=== PATIENT | male | born 1965 | race Caucasian/White ===

== ENCOUNTER 2016-09-08 15:05 | Inpatient (IN) ==
[2016-09-08 15:58] LABS: Basophils % 0.1 %; Hematocrit 39.8 % (37.5-50.1); Hemoglobin 13.4 g/dL (12.9-16.9); Immature Granulocytes % 0.6 % (0-4); Lymphocytes # 0.7 K/mcL (0.6-4.6); Mean Corpuscular HGB Conc 33.7 g/dL (31.6-35.5); Mean Corpuscular Hemoglobin 30.7 pg (28.0-33.3); Mean Corpuscular Volume 91.1 fL (83.0-100.0); Mean Platelet Volume 10.5 fL (9.4-12.4); Monocytes # 1.4 K/mcL (0.0-1.3); Monocytes % 8.3 %; Neutrophils # 14.4 K/mcL (1.6-8.9); Platelet Count 279 K/mcL (140-400); Red Blood Count 4.37 M/mcL (4.19-5.50); Red Cell Distribution Width 13.2 % (11.5-14.5)
[2016-09-08 16:10] LABS: BUN/Creatinine Ratio 33 (6-26); Calcium 9.5 mg/dL (8.6-10.8); Carbon Dioxide 24 mEq/L (19-29); Chloride 99 mEq/L (98-109); Glucose 175 mg/dL (70-99); Osmolality,Calculated 283 (280-300); Potassium 4.3 mEq/L (3.5-4.5); Sodium 132 mEq/L (136-145); eGFR For African Americans > 60 (> 60); eGFR For Non-African Americans > 60 (> 60)
[2016-09-08 16:15] LABS: Blood Urea Nitrogen 26 mg/dL (8-26)
[2016-09-08 22:01] LABS: ABG HCO3 25.2 mEQ/L (21-27); ABG Oxygen Saturation 95 % (95-98); ABG PCO2 38 mmHg (35-45); ABG PH 7.43 pH Units (7.32-7.45); ABG PO2 71 mmHg (85-104); ABG TCO2 26.4 mEq/L (20-26); Blood Gas FiO2 36 %
[2016-09-09 06:36] LABS: Basophils % 0.1 %; Eosinophils % 0.1 %; Red Cell Distribution Width 13.2 % (11.5-14.5)
[2016-09-09 06:46] LABS: Hematocrit 40.9 % (37.5-50.1); Hemoglobin 13.6 g/dL (12.9-16.9); Immature Granulocytes % 0.7 % (0-4); Lymphocytes % 7.7 %; Mean Corpuscular HGB Conc 33.3 g/dL (31.6-35.5); Mean Corpuscular Hemoglobin 30.8 pg (28.0-33.3); Mean Corpuscular Volume 92.5 fL (83.0-100.0); Mean Platelet Volume 11.7 fL (9.4-12.4); Monocytes # 0.8 K/mcL (0.0-1.3); Monocytes % 4.5 %; Neutrophils # 15.2 K/mcL (1.6-8.9); Platelet Count 300 K/mcL (140-400); Red Blood Count 4.42 M/mcL (4.19-5.50); Segmented Neutrophils % 86.9 %
[2016-09-09 06:47] LABS: Lymphocytes # 1.4 K/mcL (0.6-4.6)
[2016-09-09 06:52] LABS: BUN/Creatinine Ratio 30 (6-26); Blood Urea Nitrogen 24 mg/dL (8-26); Calcium 9.5 mg/dL (8.6-10.8); Carbon Dioxide 21 mEq/L (19-29); Chloride 100 mEq/L (98-109); Glucose 187 mg/dL (70-99); Magnesium 2.4 mg/dL (1.6-2.6); Osmolality,Calculated 281 (280-300); Phosphorous 4.1 mg/dL (2.3-4.7); Sodium 131 mEq/L (136-145); eGFR For African Americans > 60 (> 60); eGFR For Non-African Americans > 60 (> 60)
[2016-09-09 13:27] LABS: Source of Body Fluid RUL BAL
[2016-09-09 15:35] LABS: Appearance of Body Fluid Cloudy (Clear); Volume of Body Fluid 31 mL
[2016-09-10 07:22] LABS: Basophils % 0.1 %; Hematocrit 39.5 % (37.5-50.1); Hemoglobin 12.8 g/dL (12.9-16.9); Immature Granulocytes % 0.6 % (0-4); Lymphocytes # 2.1 K/mcL (0.6-4.6); Mean Corpuscular HGB Conc 32.4 g/dL (31.6-35.5); Mean Corpuscular Hemoglobin 30.2 pg (28.0-33.3); Mean Corpuscular Volume 93.2 fL (83.0-100.0); Mean Platelet Volume 10.7 fL (9.4-12.4); Monocytes # 0.8 K/mcL (0.0-1.3); Monocytes % 5.7 %; Neutrophils # 11.1 K/mcL (1.6-8.9); Platelet Count 267 K/mcL (140-400); Red Blood Count 4.24 M/mcL (4.19-5.50); Red Cell Distribution Width 13.3 % (11.5-14.5); Segmented Neutrophils % 78.6 %
[2016-09-10 07:39] LABS: BUN/Creatinine Ratio 33 (6-26); Blood Urea Nitrogen 22 mg/dL (8-26); Calcium 8.8 mg/dL (8.6-10.8); Carbon Dioxide 26 mEq/L (19-29); Chloride 100 mEq/L (98-109); Glucose 115 mg/dL (70-99); Magnesium 1.9 mg/dL (1.6-2.6); Osmolality,Calculated 282 (280-300); Phosphorous 3.5 mg/dL (2.3-4.7); Potassium 4.5 mEq/L (3.5-4.5); Sodium 134 mEq/L (136-145); eGFR For African Americans > 60 (> 60); eGFR For Non-African Americans > 60 (> 60)
[2016-09-11 07:23] LABS: Basophils % 0.2 %; Eosinophils % 0.1 %; Hematocrit 39.3 % (37.5-50.1); Hemoglobin 12.5 g/dL (12.9-16.9); Immature Granulocytes % 0.9 % (0-4); Lymphocytes # 1.9 K/mcL (0.6-4.6); Lymphocytes % 19.9 %; Mean Corpuscular HGB Conc 31.8 g/dL (31.6-35.5); Mean Corpuscular Hemoglobin 29.9 pg (28.0-33.3); Monocytes # 0.6 K/mcL (0.0-1.3); Monocytes % 5.9 %; Neutrophils # 6.8 K/mcL (1.6-8.9); Platelet Count 241 K/mcL (140-400); Red Blood Count 4.18 M/mcL (4.19-5.50); Red Cell Distribution Width 13.2 % (11.5-14.5)
[2016-09-11 07:30] LABS: BUN/Creatinine Ratio 23 (6-26); Blood Urea Nitrogen 16 mg/dL (8-26); Carbon Dioxide 28 mEq/L (19-29); Chloride 98 mEq/L (98-109); Glucose 151 mg/dL (70-99); Magnesium 1.9 mg/dL (1.6-2.6); Osmolality,Calculated 280 (280-300); Phosphorous 3.3 mg/dL (2.3-4.7); Potassium 4.4 mEq/L (3.5-4.5); Sodium 133 mEq/L (136-145); eGFR For African Americans > 60 (> 60); eGFR For Non-African Americans > 60 (> 60)
[2016-09-12 06:46] LABS: BUN/Creatinine Ratio 26 (6-26); Blood Urea Nitrogen 16 mg/dL (8-26); Calcium 8.8 mg/dL (8.6-10.8); Carbon Dioxide 27 mEq/L (19-29); Chloride 98 mEq/L (98-109); Glucose 119 mg/dL (70-99); Magnesium 1.9 mg/dL (1.6-2.6); Osmolality,Calculated 280 (280-300); Phosphorous 3.3 mg/dL (2.3-4.7); Potassium 4.5 mEq/L (3.5-4.5); Sodium 134 mEq/L (136-145); eGFR For African Americans > 60 (> 60); eGFR For Non-African Americans > 60 (> 60)
[2016-09-12 08:48] LABS: Basophils % 0.5 %; Eosinophils # 0.2 K/mcL (0.0-0.6); Eosinophils % 1.8 %; Hematocrit 36.4 % (37.5-50.1); Hemoglobin 12.1 g/dL (12.9-16.9); Immature Granulocytes % 0.5 % (0-4); Lymphocytes # 2.1 K/mcL (0.6-4.6); Lymphocytes % 23.6 %; Mean Corpuscular HGB Conc 33.2 g/dL (31.6-35.5); Mean Corpuscular Hemoglobin 30.9 pg (28.0-33.3); Mean Corpuscular Volume 92.9 fL (83.0-100.0); Mean Platelet Volume 10.3 fL (9.4-12.4); Monocytes # 0.4 K/mcL (0.0-1.3); Monocytes % 4.8 %; Neutrophils # 6.1 K/mcL (1.6-8.9); Platelet Count 221 K/mcL (140-400); Red Blood Count 3.92 M/mcL (4.19-5.50); Segmented Neutrophils % 68.8 %
[2016-09-13 07:11] LABS: Eosinophils # 0.2 K/mcL (0.0-0.6); Hematocrit 36.4 % (37.5-50.1); Hemoglobin 11.9 g/dL (12.9-16.9); Mean Corpuscular HGB Conc 32.7 g/dL (31.6-35.5); Mean Corpuscular Hemoglobin 30.2 pg (28.0-33.3); Mean Corpuscular Volume 92.4 fL (83.0-100.0); Mean Platelet Volume 11.2 fL (9.4-12.4); Platelet Count 262 K/mcL (140-400); Red Blood Count 3.94 M/mcL (4.19-5.50); Red Cell Distribution Width 12.6 % (11.5-14.5)
[2016-09-13 08:11] LABS: Basophils # 0.2 K/mcL (0.0-0.2); Lymphocytes # 2.1 K/mcL (0.6-4.6); Monocytes # 0.5 K/mcL (0.0-1.3); Neutrophils # 8.7 K/mcL (1.6-8.9)
[2016-09-13 08:12] LABS: Platelet Estimate Normal (Normal)
[2016-09-14 07:13] LABS: Basophils % 0.3 %; Eosinophils % 0.1 %; Hematocrit 36.7 % (37.5-50.1); Hemoglobin 12.1 g/dL (12.9-16.9); Immature Granulocytes % 1.5 % (0-4); Lymphocytes # 2.2 K/mcL (0.6-4.6); Lymphocytes % 18.2 %; Mean Corpuscular Hemoglobin 30.2 pg (28.0-33.3); Mean Corpuscular Volume 91.5 fL (83.0-100.0); Monocytes # 0.3 K/mcL (0.0-1.3); Monocytes % 2.1 %; Neutrophils # 9.2 K/mcL (1.6-8.9); Platelet Count 301 K/mcL (140-400); Red Blood Count 4.01 M/mcL (4.19-5.50); Red Cell Distribution Width 12.6 % (11.5-14.5); Segmented Neutrophils % 77.8 %
[2016-09-14 07:24] LABS: BUN/Creatinine Ratio 24 (6-26); Blood Urea Nitrogen 16 mg/dL (8-26); Calcium 8.7 mg/dL (8.6-10.8); Carbon Dioxide 28 mEq/L (19-29); Chloride 95 mEq/L (98-109); Glucose 264 mg/dL (70-99); Osmolality,Calculated 286 (280-300); Potassium 4.5 mEq/L (3.5-4.5); Sodium 133 mEq/L (136-145); eGFR For African Americans > 60 (> 60); eGFR For Non-African Americans > 60 (> 60)
[2016-09-14 07:47] LABS: Platelet Estimate Normal (Normal)
[2016-09-15 07:06] LABS: BUN/Creatinine Ratio 31 (6-26); Blood Urea Nitrogen 20 mg/dL (8-26); Calcium 8.5 mg/dL (8.6-10.8); Carbon Dioxide 27 mEq/L (19-29); Chloride 98 mEq/L (98-109); Glucose 224 mg/dL (70-99); Osmolality,Calculated 290 (280-300); Potassium 4.3 mEq/L (3.5-4.5); Sodium 135 mEq/L (136-145); eGFR For African Americans > 60 (> 60); eGFR For Non-African Americans > 60 (> 60)
[2016-09-15 07:31] LABS: Basophils % 0.1 %; Hematocrit 35.3 % (37.5-50.1); Hemoglobin 11.7 g/dL (12.9-16.9); Immature Granulocytes % 3.2 % (0-4); Lymphocytes # 2.7 K/mcL (0.6-4.6); Lymphocytes % 12.9 %; Mean Corpuscular HGB Conc 33.1 g/dL (31.6-35.5); Mean Corpuscular Hemoglobin 30.3 pg (28.0-33.3); Mean Corpuscular Volume 91.5 fL (83.0-100.0); Monocytes % 4.7 %; Neutrophils # 16.5 K/mcL (1.6-8.9); Platelet Count 375 K/mcL (140-400); Red Blood Count 3.86 M/mcL (4.19-5.50); Red Cell Distribution Width 12.6 % (11.5-14.5); Segmented Neutrophils % 79.1 %
[2016-09-16 07:22] VITALS: BP 147/80
== END 2016-09-16 13:30 | disposition home health service (06) | DRG 140 ==
LOC: EMEROO 15:05 → 2ANU 15:05 → SUATTDRO 09-09 01:19
PROVIDERS: ADMIT Family Medicine; ATTEND Internal Medicine

== ENCOUNTER 2016-12-26 15:34 | Inpatient (IN) ==
--- NOTE | 2016-12-26 17:20 | Emergency Department Note ---
Disposition Clinical Impression: COPD exacerbation, Cough, Rib fracture, Shortness of breath, History of pneumonia, Smoker, Hypertension, History of asthma Disposition: Admitted As Inpatient Referrals: Basil Moreno DO [Primary Care Provider] - Forms: ED Satisfaction Letter General Adult HPI - General Chief complaint: ED Shortness of Breath/Dyspnea Stated complaint: KEVEN/ L sided rib pain Time Seen by Provider: 12/26/16 17:13 Source: patient Limitations: no limitations - History of Present Illness HPI Narrative: 51-year-old male reports emergency department complaining of shortness of breath and left rib pain. He has a known history of COPD and cough today and developed sudden left-sided rib pain. There is no history of blunt trauma. No history of abdominal pain vomiting or diarrhea. There is no history of fever. The patient on any anterior chest pain left arm and left jaw pain. There is been no leg swelling or pain or coughing up blood. The patient has no personal history of DVT PE cancer or CAD. He is not anticoagulated this time. There is no history of fever redness or pain or sore throat. The patient wears oxygen intermittently at home. He does not require oxygen on a full-time basis. The patient has had no trouble moving the arms or legs independently there is no history of confusion or dysarthria. Sided rib pain associated with breathing in and out after coughing is reported. Pain Scale: 8 - Related Data Home Medications Medication Instructions Recorded Confirmed Atorvastatin [Lipitor] 40 mg PO HS 07/15/15 09/08/16 Citalopram [CeleXA] 20 mg PO DAILY 07/15/15 09/08/16 Omeprazole [PriLOSEC] 20 mg PO DAILY 07/15/15 09/08/16 Albuterol Sulfate [Ventolin Hfa] 2 puff IH Q6H PRN 09/08/16 09/08/16 Diclofenac Sodium [Voltaren] 1 appl TP TID PRN 09/08/16 09/08/16 Propranolol HCl [Innopran Xl] 80 mg PO DAILY 09/08/16 09/08/16 Tramadol HCl [Ultram] 50 mg PO BID PRN 09/08/16 09/08/16 Previous Rx's Medication Instructions Recorded Brompheniramine/Pseudoephed/Dm 5 ml PO Q6H #240 ml 09/07/16 [Bromfed Dm Cough Syrup] Promethazine/Codeine 5 ml PO Q6HR #240 ml 09/07/16 [Phenergan/Codeine] predniSONE [PredniSONE] See Taper PO DAILY 12 Days 09/16/16 Allergies Allergy/AdvReac Type Severity Reaction Status Date / Time No Known Allergies Allergy Verified 09/08/16 15:12 All systems ED: reviewed and negative except as stated. Past Medical History - Past Medical History Medical history: Reports: asthma, COPD, hyperlipidemia, hypertension, other Surgical history: Reports: non-contributory Psychiatric history: Reports: no psych history - Social History Smoking Status: Current every day smoker Smokeless Tobacco Status: No Alcohol use: Reports: none Drug use: Reports: none Physical Exam - General Limitations: no limitations General appearance: alert, in no apparent distress - Head Head exam: atraumatic, normocephalic, normal inspection - Eye Eye exam: Present: normal appearance, PERRL, EOMI, conjunctival injection. Absent: scleral icterus, miosis, mydriasis, periorbital swelling - ENT ENT exam: normal exam, normal oropharynx, mucous membranes moist, TM's normal bilaterally, normal external ear exam - Neck Neck exam: Present: normal inspection, full ROM, trachea midline. Absent: meningismus - Chest Chest inspection: Present: normal inspection, symmetric chest wall rise, tenderness - Respiratory Respiratory exam: Present: wheezes, prolonged expiratory phase. Absent: respiratory distress, stridor, accessory muscle use - Cardiovascular Cardiovascular exam: Present: regular rate, normal rhythm, normal heart sounds - Abdominal Exam Abdominal exam: Present: soft, Non-Tender, normal bowel sounds. Absent: tenderness, distention, guarding, rebound, rigidity, pulsatile mass - Extremities Exam Extremities exam: Present: normal inspection, full ROM, normal capillary refill. Absent: tenderness, pedal edema, joint swelling, calf tenderness - Expanded Lower Extremity Exam Lower leg exam: Absent: Homans' sign Neurovascular/Tendon exam: Present: normal capillary refill. Absent: motor deficit, sensory deficit, tendon deficit, extremity cold to touch, pallor - Back Exam Back exam: Present: normal inspection, full ROM. Absent: tenderness, CVA tenderness (R), CVA tenderness (L), vertebral tenderness - Neurological Exam Neurological exam: Present: alert, oriented X3, CN II-XII intact. Absent: motor sensory deficit - Psychiatric Psychiatric exam: Present: normal affect, normal mood - Skin Skin exam: Present: warm, intact, normal color, diaphoresis, other (The patient is slightly diaphoretic, he appears to be uncomfortable.). Absent: rash, cyanosis, erythema, pallor, mottled Course Vital Signs Temperature 98.3 F 12/26/16 15:45 Pulse Rate 81 12/26/16 15:45 Respiratory Rate 18 12/26/16 15:45 Blood Pressure 174/103 12/26/16 15:45 O2 Sat by Pulse Oximetry 95 12/26/16 15:45 Temperature 98.3 F 12/26/16 15:45 Pulse Rate 81 12/26/16 15:45 Respiratory Rate 18 12/26/16 18:26 Blood Pressure 174/103 12/26/16 15:45 O2 Sat by Pulse Oximetry 90 12/26/16 18:26 Oxygen Delivery Oxygen Delivery Room Air Medical Decision Making - MDM Narrative Medical decision making narrative: The patient has COPD, he has marked wheezing. He took 2 breathing medications before he came into the ED. He coughs so hard he broke his left rib. He was given a DuoNeb here and had persistent wheezing afterwards. Solu-Medrol was also given as well as dilated and Zofran. A second DuoNeb was ordered. Oxygen was ordered. Given the patient's level of discomfort, acute rib fracture, persistent wheezing, underlying COPD, age over 50, smoker, I thought it be appropriate to admit the patient for observation. I discussed the case with the hospitalist who has accepted the patient to their care. The patient is currently stable pending admission. A dose of Omnicef was given by mouth in the ED, the patient citalopram, he was given Zofran, and in combination there is some risk for QTC prolongation, additional antibiotics like azithromycin or Levaquin would also be additive in this QTC prolonging effect hence a po cephalosporin was given. The patient is currently stable pending admission. - Lab Data Lab results reviewed: Yes I reviewed the patient's lab results. Result diagrams: 12/26/16 17:19 12/26/16 17:19 Lab Results 12/26/16 12/26/16 12/26/16 Range/Units 17:19 17:19 17:19 WBC 11.3 H (4.3-11.1) K/mcL RBC 4.73 (4.19-5.50) M/mcL Hgb 13.7 (12.9-16.9) g/dL Hct 43.1 (37.5-50.1) % MCV 91.1 (83.0-100.0) fL MCH 29.0 (28.0-33.3) pg MCHC 31.8 (31.6-35.5) g/dL RDW 13.4 (11.5-14.5) % Plt Count 357 (140-400) K/mcL MPV 11.1 (9.4-12.4) fL Immature Gran % 0.3 (0-4) % Seg Neutrophils % 66.6 % Lymphocytes % 19.5 % Monocytes % 6.5 % Eosinophils % 6.0 % Basophils % 1.1 % Neutrophils # 7.5 (1.6-8.9) K/mcL Lymphocytes # 2.2 (0.6-4.6) K/mcL Monocytes # 0.7 (0.0-1.3) K/mcL Eosinophils # 0.7 H (0.0-0.6) K/mcL Basophils # 0.1 (0.0-0.2) K/mcL Sodium 134 L (136-145) mEq/L Potassium 4.5 (3.5-4.5) mEq/L Chloride 100 (98-109) mEq/L Carbon Dioxide 25 (19-29) mEq/L BUN 9 (8-26) mg/dL Creatinine 0.77 (0.72-1.25) mg/dL Est GFR ( Amer) > 60 (> 60) Est GFR (Non-Af Amer) > 60 (> 60) BUN/Creatinine Ratio 12 (6-26) Glucose 176 H (70-99) mg/dL Calculated Osmolality 281 (280-300) Calcium 9.8 (8.6-10.8) mg/dL Total Bilirubin (0.2-1.2) mg/dL Direct Bilirubin (0.0-0.5) mg/dL Indirect Bilirubin (0.0-1.2) mg/dL AST (5-34) Units/L ALT (0-55) Units/L Alkaline Phosphatase (38-126) Units/L Troponin I 0.00 (0-0.03) ng/mL C-Reactive Protein (Less than 5) mg/L B-Natriuretic Peptide (0-100) pg/mL Serum Total Protein (6.0-8.3) g/dL Albumin (3.5-5.0) g/dL Globulin (2.4-3.5) g/dL Albumin/Globulin Ratio (1.1-2.2) Lipase (8-78) Units/L 12/26/16 12/26/16 12/26/16 Range/Units 17:19 18:10 18:10 WBC (4.3-11.1) K/mcL RBC (4.19-5.50) M/mcL Hgb (12.9-16.9) g/dL Hct (37.5-50.1) % MCV (83.0-100.0) fL MCH (28.0-33.3) pg MCHC (31.6-35.5) g/dL RDW (11.5-14.5) % Plt Count (140-400) K/mcL MPV (9.4-12.4) fL Immature Gran % (0-4) % Seg Neutrophils % % Lymphocytes % % Monocytes % % Eosinophils % % Basophils % % Neutrophils # (1.6-8.9) K/mcL Lymphocytes # (0.6-4.6) K/mcL Monocytes # (0.0-1.3) K/mcL Eosinophils # (0.0-0.6) K/mcL Basophils # (0.0-0.2) K/mcL Sodium (136-145) mEq/L Potassium (3.5-4.5) mEq/L Chloride (98-109) mEq/L Carbon Dioxide (19-29) mEq/L BUN (8-26) mg/dL Creatinine (0.72-1.25) mg/dL Est GFR ( Amer) (> 60) Est GFR (Non-Af Amer) (> 60) BUN/Creatinine Ratio (6-26) Glucose (70-99) mg/dL Calculated Osmolality (280-300) Calcium (8.6-10.8) mg/dL Total Bilirubin 0.5 (0.2-1.2) mg/dL Direct Bilirubin 0.2 (0.0-0.5) mg/dL Indirect Bilirubin 0.3 (0.0-1.2) mg/dL AST 16 (5-34) Units/L ALT 33 (0-55) Units/L Alkaline Phosphatase 110 (38-126) Units/L Troponin I (0-0.03) ng/mL C-Reactive Protein 54 H (Less than 5) mg/L B-Natriuretic Peptide 17 (0-100) pg/mL Serum Total Protein 7.2 (6.0-8.3) g/dL Albumin 3.9 (3.5-5.0) g/dL Globulin 3.3 (2.4-3.5) g/dL Albumin/Globulin Ratio 1.2 (1.1-2.2) Lipase 12 (8-78) Units/L - Radiology Data Radiology results reviewed: Yes I reviewed the patient's radiology results.
[2016-12-26] MEDS ORDERED: *HR* HYDROmorphone (PF) 1 MG/ML SYRINGE IVP ONE (17:27)
[2016-12-26] MEDS ORDERED: methylPREDNISolone 125 MG/2 ML VIAL IVP ONE (17:28)
[2016-12-26] MEDS ORDERED: Ipratropium/Albuterol Neb 3 ML IH ONE ×2 (17:28→18:45)
[2016-12-26] MEDS ORDERED: Ondansetron 4 MG/2 ML VIAL IVP ONE (17:28)
[2016-12-26 17:41] LABS: Basophils # 0.1 K/mcL (0.0-0.2); Basophils % 1.1 %; Eosinophils # 0.7 K/mcL (0.0-0.6); Hematocrit 43.1 % (37.5-50.1); Hemoglobin 13.7 g/dL (12.9-16.9); Immature Granulocytes % 0.3 % (0-4); Lymphocytes # 2.2 K/mcL (0.6-4.6); Lymphocytes % 19.5 %; Mean Corpuscular HGB Conc 31.8 g/dL (31.6-35.5); Mean Corpuscular Volume 91.1 fL (83.0-100.0); Mean Platelet Volume 11.1 fL (9.4-12.4); Monocytes # 0.7 K/mcL (0.0-1.3); Monocytes % 6.5 %; Neutrophils # 7.5 K/mcL (1.6-8.9); Platelet Count 357 K/mcL (140-400); Red Blood Count 4.73 M/mcL (4.19-5.50); Red Cell Distribution Width 13.4 % (11.5-14.5); Segmented Neutrophils % 66.6 %
[2016-12-26 17:58] LABS: BUN/Creatinine Ratio 12 (6-26); Blood Urea Nitrogen 9 mg/dL (8-26); Calcium 9.8 mg/dL (8.6-10.8); Carbon Dioxide 25 mEq/L (19-29); Chloride 100 mEq/L (98-109); Glucose 176 mg/dL (70-99); Osmolality,Calculated 281 (280-300); Potassium 4.5 mEq/L (3.5-4.5); Sodium 134 mEq/L (136-145); eGFR For African Americans > 60 (> 60); eGFR For Non-African Americans > 60 (> 60)
[2016-12-26 18:34] LABS: Albumin 3.9 g/dL (3.5-5.0); Albumin/Globulin Ratio 1.2 (1.1-2.2); Bilirubin,Direct 0.2 mg/dL (0.0-0.5); Bilirubin,Indirect 0.3 mg/dL (0.0-1.2); Bilirubin,Total 0.5 mg/dL (0.2-1.2); Globulin 3.3 g/dL (2.4-3.5); Total Protein 7.2 g/dL (6.0-8.3)
[2016-12-26] MEDS ORDERED: Cefdinir 300 MG CAPSULE PO ONE (19:15)
[2016-12-26] MEDS ORDERED: Ketorolac 30 MG/ML VIAL IVP PRN (20:39)
[2016-12-26] MEDS ORDERED: Naloxone 0.4 MG/ML INJ IVP PRN ×2 (20:40→20:43)
[2016-12-26] MEDS ORDERED: Ipratropium/Albuterol Neb 3 ML IH PRN (20:41)
[2016-12-26] MEDS ORDERED: Ondansetron 4 MG/2 ML VIAL IVP PRN (20:43)
[2016-12-26] MEDS ORDERED: Acetaminophen 325 MG TABLET PO PRN (20:43)
[2016-12-26] MEDS: Azithromycin 500 MG in D5% in Water 250 ML IVPB SCH (21:54)
[2016-12-26] MEDS: Ipratropium/Albuterol Neb 3 ML IH SCH (23:30)
[2016-12-27] MEDS ORDERED: Dextrose Gel 15 GM PO PRN ×2 (01:52)
[2016-12-27] MEDS ORDERED: *HR* Dextrose 50 % in Water (Syg) 50 ML SYRINGE IVP PRN (01:52)
[2016-12-27] MEDS ORDERED: D5% in Water 1,000 ML IVC PRN (01:52)
--- NOTE | 2016-12-27 01:56 | Internal Med History&Physical ---
Date of Encounter: 12/26/16 Time of Encounter: 20:50 Assessment and Plan (1) COPD exacerbation Current visit: Yes Status: Acute treatment with IV Solu-Medrol, DuoNeb nebs, azithromycin. tobacco cessation advised and patient declined nicotine patch. (2) Rib fracture Current visit: Yes Status: Acute pain control - Toradol ordered. Qualifiers: Encounter type: initial encounter Rib fracture type: single rib Fracture type: closed Laterality: left Qualified Code(s): S22.32XA - Fracture of one rib, left side, initial encounter for closed fracture (3) Hyperglycemia Current visit: Yes Status: Acute check A1c in the a.m. Internal Medicine - H&P: HPI Chief complaint: left sided rib pain Admitted From: Home Plans for Post Hospital Care: Home History of present illness: Mr. Matos is a 51 year old male with past medical history HLP, recently diagosed COPD who presents to [facility] with increasing shortness of breath and L- sided rib pain. He has been battling shortness of breath for over 1 week now. Has been coughing quite a bit, but claims he has not been coughing hard. He felt a "pop" on his left side of his ribcage and the pain caused him to fall to his knees. He was found to have a left 9th rib fracture on CXR. Past Med Surg Social Fam HX - Past Medical History Source: patient Medical history: asthma, COPD, hyperlipidemia, hypertension, other Psychiatric history: no psych history - Past Surgical History Surgical History: non-contributory, orthopedic, other - Social History Smoking Status: Current every day smoker Packs per day: 1/2 Smokeless Tobacco Status: No Alcohol use: none Drug use: none - Family History Mother Adopted: No Age: 77 Living Status: Still Living Hx Family Cardiac Disorders: Yes (CHF) Hx Family Respiratory Disorders: Yes (brother, father) Hx Family Cancer: Yes (Father) Hx Family GI Disorders: No Hx Family Endocrine Disorder: Yes Hx Family Neuromuscular Disorders: No Hx Family Neurologic Disorders: No Hx Family HEENT Disorders: Yes (brother) Hx Family Autoimmune Disorders: No Father Living Status: Age at : 60 Cause of : Lung Cancer Hx Family Cancer: Yes Internal Medicine - H&P: Meds Atorvastatin [Lipitor] 40 mg PO HS 07/15/15 [History] Citalopram [CeleXA] 20 mg PO DAILY 07/15/15 [History] Omeprazole [PriLOSEC] 20 mg PO DAILY 07/15/15 [History] Albuterol Sulfate [Ventolin Hfa] 2 puff IH Q6H PRN 09/08/16 [History] Propranolol HCl [Innopran Xl] 80 mg PO DAILY 09/08/16 [History] Tramadol HCl [Ultram] 50 mg PO BID PRN 09/08/16 [History] Albuterol Neb [Proventil Neb] 2.5 mg IH Q4H PRN 12/26/16 [History] Fluticasone/Vilanterol [Breo Ellipta 200-25 Mcg INH] 1 each IH DAILY 12/26/16 [ History] Allergies No Known Allergies Allergy (Verified 09/08/16 15:12) All Systems PM: A 10-system review of systems was performed and is negative for pertinent findings except as documented above in the HPI. - Constitutional Constitutional: as per HPI, malaise, no chills, no fever(s) - Cardiovascular Cardiovascular ROS IM: as per HPI, dyspnea - Respiratory Respiratory: as per HPI, cough, no hemoptysis - Gastrointestinal Gastrointestinal: no abdominal pain - Constitutional Vitals: Temp Pulse Resp BP Pulse Ox 97.9 F 79 16 157/76 97 12/26/16 23:47 12/26/16 23:47 12/27/16 00:15 12/26/16 23:47 12/27/16 00:15 General appearance: Present: A&O X 3, pleasant, obese, answers questions appropriately Exam: has 4-5 word conversational dyspnea. - Eye Eye exam: Present: EOMI - Respiratory Respiratory exam: Present: decreased breath sounds Additional comments: appears very tight with minimal air entry - Cardiovascular Cardiovascular exam: Present: RRR, +S1, +S2 Additional comments: left sided chest pain at site of rib fracture - GI/Abdominal GI/Abdominal exam: Absent: tenderness - Extremities Exam Extremities exam: Absent: pedal edema, tenderness - Psychiatric Psychiatric exam: Present: normal affect, normal mood Internal Med - H&P Results - Labs CBC & Chem 7: 12/26/16 17:19 12/26/16 17:19
[2016-12-27] MEDS: methylPREDNISolone 125 MG/2 ML VIAL IVP SCH ×4 (02:14→23:53)
[2016-12-27] MEDS: Ipratropium/Albuterol Neb 3 ML IH SCH ×5 (04:34→22:57)
[2016-12-27 05:12] LABS: Basophils % 0.2 %; Eosinophils % 0.2 %; Hematocrit 42.3 % (37.5-50.1); Immature Granulocytes % 0.6 % (0-4); Lymphocytes # 1.5 K/mcL (0.6-4.6); Lymphocytes % 11.9 %; Mean Corpuscular HGB Conc 33.1 g/dL (31.6-35.5); Mean Corpuscular Hemoglobin 29.9 pg (28.0-33.3); Mean Corpuscular Volume 90.2 fL (83.0-100.0); Mean Platelet Volume 11.3 fL (9.4-12.4); Monocytes # 0.1 K/mcL (0.0-1.3); Neutrophils # 10.5 K/mcL (1.6-8.9); Platelet Count 332 K/mcL (140-400); Red Blood Count 4.69 M/mcL (4.19-5.50); Red Cell Distribution Width 13.4 % (11.5-14.5); Segmented Neutrophils % 86.1 %
[2016-12-27 05:22] LABS: INR 1.1; Prothrombin Time 12.2 Seconds (9.4-12.1)
[2016-12-27 05:23] LABS: Hemoglobin A1C 8.2 %
[2016-12-27 05:24] LABS: Activated Partial Thrombo Time 29.7 Seconds (26.0-36.0); Alanine Aminotransferase 32 Units/L (0-55); Albumin 3.8 g/dL (3.5-5.0); Albumin/Globulin Ratio 1.1 (1.1-2.2); Alkaline Phosphatase 116 Units/L (38-126); Aspartate Amino Transferase 15 Units/L (5-34); BUN/Creatinine Ratio 20 (6-26); Bilirubin,Total 0.5 mg/dL (0.2-1.2); Blood Urea Nitrogen 17 mg/dL (8-26); Calcium 9.6 mg/dL (8.6-10.8); Carbon Dioxide 24 mEq/L (19-29); Chloride 101 mEq/L (98-109); Globulin 3.6 g/dL (2.4-3.5); Glucose 278 mg/dL (70-99); Osmolality,Calculated 286 (280-300); Potassium 5.3 mEq/L (3.5-4.5); Sodium 132 mEq/L (136-145); Total Protein 7.4 g/dL (6.0-8.3); eGFR For African Americans > 60 (> 60); eGFR For Non-African Americans > 60 (> 60)
[2016-12-27] MEDS: *HR* Enoxaparin 40 MG/0.4 ML SYRINGE SQ SCH (05:39)
[2016-12-27] MEDS: Insulin LISPRO 300 UNITS/3 ML VIAL SQ SCH ×6 (08:32→21:25)
[2016-12-27] MEDS: *HR* Morphine 2 MG/ML SYRINGE IVP PRN ×3 (08:33→20:23)
[2016-12-27] MEDS: Propranolol LA (24 HR) 80 MG CAP.SA.24H PO SCH (08:33)
[2016-12-27] MEDS ORDERED: Pantoprazole 40 MG VIAL IVP SCH (09:00)
[2016-12-27] MEDS ORDERED: BREO ELLIPTA IH SCH (10:00)
--- NOTE | 2016-12-27 11:14 | Electrocardiograph Report ---
[place] [id number] Test Date: 2016-12-26 Pat Name: Eugene Matos Department: 103 Room: 3A43 Gender: M Field Account Manager: JOANNE : 1965 Requested By: Lucas Gamino Order Number: [id number] Reading MD: Alanna Menard Measurements Intervals [place] Rate: 84 P: 59 AL: 164 QRS: 37 QRSD: 109 T: 35 QT: 336 QTc: 376 Interpretive Statements SINUS RHYTHM Electronically Signed On 12-27-2016 11:13:27 EDT by Alanna Menard
[2016-12-27] MEDS ORDERED: Albuterol 2.5 MG/3 ML NEBULIZER IH PRN (12:59)
[2016-12-27] MEDS: Nicotine 21 MG PATCH.TD24 TD SCH (14:33)
[2016-12-27] MEDS: Cholecalciferol (D-3) 1,000 UNIT TABLET PO SCH (14:34)
--- NOTE | 2016-12-27 15:53 | Internal Med Progress Note ---
Date of Encounter: 12/27/16 Time of Encounter: 15:51 - Assessment and plan (1) Hypertension Current Visit: Yes Status: Acute Assessment and plan: The patient has been noted to be elevated. Considering history of diabetes want to try lisinopril however his potassium is slightly elevated which could be just due to IV Solu-Medrol and heavier dose. While we are reducing IV Solu- Medrol I will introduce lisinopril 5 mg daily to see if blood pressure improves and also if his potassium remained stable. Qualifiers: Hypertension type: essential hypertension Qualified Code(s): I10 - Essential (primary) hypertension (2) DVT prophylaxis Current Visit: Yes Status: Acute Assessment and plan: Patient is on Lovenox and has been advised to ambulate (3) COPD exacerbation Current Visit: Yes Status: Acute Assessment and plan: Patient presented with the bilateral diffuse wheezing shallow breath sounds and COPD exacerbation. He is a smoker. Counseling provided. IV steroids will be reduced from IV Solu-Medrol 125 mg 3 times a day to 60 mg every 8 as well as nebulizers will be reduced to dual nebs every 6+ albuterol nebs every 2 hours. He is on oxygen. He might have to stay for more than 2 days. Home is steroids and inhaler will be on hold for now. (4) Smoker Current Visit: Yes Status: Acute Assessment and plan: Counseling voided and nicotine patch recommended (5) New onset type 2 diabetes mellitus Current Visit: Yes Status: Acute Assessment and plan: Patient hemoglobin A1c is 8.2. Diabetic education arranged and caution provided. After discussion with patient we have decided to give a trial to oral hypoglycemics though he is currently using almost 27 units of insulin. However the caveat is that he is on heavy dose IV steroids. He most probably will need insulin. He will continue to have Accu-Chek 4 times a day with sliding scale coverage. And to be provided counseling regarding possible risk complication associated with diabetes and advised to follow-up with family doctor in this regard. (6) Fracture of rib of left side Current Visit: Yes Status: Acute Assessment and plan: Patient have spontaneous left ninth rib fracture. He seems quite comfortable. I have added calcium and vitamin D and will give him cough syrup with codeine for further comfort. Qualifiers: Encounter type: initial encounter Rib fracture type: single rib Fracture type: closed Qualified Code(s): S22.32XA - Fracture of one rib, left side, initial encounter for closed fracture - Time Spent With Patient Greater than 35 minutes (Counseling for nicotine diabetes and obesity provided) - Subjective Interval history: Mr. Eugene Matos is a 51-year-old male admitted as a vision and left-sided ninth rib fracture intense coughing. He has been diagnosed with new-onset hypertension and new onset diabetes during this admission. She is a smoker and has been advised to quit his smoking. For DVT prophylaxis he is on Lovenox. - Constitutional Vitals: Temp Pulse Resp BP Pulse Ox 97.9 F 94 14 150/89 96 12/27/16 11:44 12/27/16 11:44 12/27/16 11:44 12/27/16 11:44 12/27/16 11:44 General appearance: Present: A&O X 3, pleasant, obese, answers questions appropriately - Head Head exam: Present: atraumatic, normocephalic - Eye Eye exam: Present: PERRL, conjuntiva pink, sclera anicteric Pupils: Present: PERRL - Neck Neck exam general surgery: Present: supple, trachea midline. Absent: lymphadenopathy - Expanded Respiratory Exam Location: decreased breath sounds: Left, Right, wheezes: Left, Right - Cardiovascular Cardiovascular exam: Present: RRR, +S1, +S2. Absent: diastolic murmur, gallop, rubs, systolic murmur - GI/Abdominal GI/Abdominal exam: Present: normal bowel sounds, soft, no peritoneal signs. Absent: distended, tenderness - Extremities Exam Extremities exam: Present: warm, radial pulses palpable and symetrical. Absent : calf tenderness, cyanotic, pedal edema - Neurological Exam Neurological exam: Present: CN II-XII intact, oriented X3, no focal deficits. Absent: pronater drift, facial droop, speech deficit - Skin Skin exam: Present: dry, intact Internal Medicine: Result - Labs CBC & Chem 7: 12/27/16 04:10 12/27/16 04:10 Labs: Short CBC 12/27/16 Range/Units 04:10 WBC 12.2 H (4.3-11.1) K/mcL Hgb 14.0 (12.9-16.9) g/dL Hct 42.3 (37.5-50.1) % Plt Count 332 (140-400) K/mcL Neutrophils # 10.5 H (1.6-8.9) K/mcL BMP 12/27/16 04:10 Sodium 132 L Potassium 5.3 H Chloride 101 Carbon Dioxide 24 BUN 17 Creatinine 0.87 Glucose 278 H Calcium 9.6 Cardiac Enzymes 12/27/16 Range/Units 04:10 Troponin I 0.00 (0-0.03) ng/mL Liver Function 12/27/16 Range/Units 04:10 Total Bilirubin 0.5 (0.2-1.2) mg/dL AST 15 (5-34) Units/L ALT 32 (0-55) Units/L Alkaline Phosphatase 116 (38-126) Units/L Albumin 3.8 (3.5-5.0) g/dL - ABG Interpretation ABG results: PT/INR, D-dimer PT 12.2 Seconds (9.4-12.1) H 12/27/16 04:10 Consult Discharge Plan - Plan Referrals: Basil Moreno DO [Primary Care Provider] - 01/05/17 9:30 am
[2016-12-27] MEDS: *HR* Metformin 500 MG TABLET PO SCH (17:49)
[2016-12-27] MEDS: GuaiFENesin/Codeine Oral Soln 5 ML UDC PO PRN (20:23)
[2016-12-27] MEDS: Azithromycin 500 MG in D5% in Water 250 ML IVPB SCH (20:25)
[2016-12-28] MEDS: *HR* Morphine 2 MG/ML SYRINGE IVP PRN ×2 (04:08→11:28)
[2016-12-28] MEDS: Ipratropium/Albuterol Neb 3 ML IH SCH ×4 (04:22→23:18)
[2016-12-28] MEDS: *HR* Enoxaparin 40 MG/0.4 ML SYRINGE SQ SCH (05:44)
[2016-12-28] MEDS: *HR* Metformin 500 MG TABLET PO SCH ×2 (07:18→18:00)
[2016-12-28] MEDS: Cholecalciferol (D-3) 1,000 UNIT TABLET PO SCH (07:18)
[2016-12-28] MEDS: methylPREDNISolone 125 MG/2 ML VIAL IVP SCH ×2 (07:18→18:00)
[2016-12-28] MEDS: Nicotine 21 MG PATCH.TD24 TD SCH (07:19)
[2016-12-28] MEDS: Propranolol LA (24 HR) 80 MG CAP.SA.24H PO SCH (07:26)
[2016-12-28] MEDS: Insulin LISPRO 300 UNITS/3 ML VIAL SQ SCH ×4 (11:32→22:25)
[2016-12-28] MEDS: GuaiFENesin/Codeine Oral Soln 5 ML UDC PO PRN (12:53)
[2016-12-28] MEDS: Insulin DETEMIR 100 UNIT/ML X5UNITS SQ SCH (14:51)
[2016-12-28] MEDS: Azithromycin 500 MG in D5% in Water 250 ML IVPB SCH (20:01)
[2016-12-29] MEDS: methylPREDNISolone 125 MG/2 ML VIAL IVP SCH ×3 (00:22→15:56)
[2016-12-29] MEDS: Ipratropium/Albuterol Neb 3 ML IH SCH ×3 (03:57→17:05)
[2016-12-29] MEDS: *HR* Enoxaparin 40 MG/0.4 ML SYRINGE SQ SCH (06:38)
[2016-12-29] MEDS: *HR* Metformin 500 MG TABLET PO SCH ×2 (09:05→15:21)
[2016-12-29] MEDS: Propranolol LA (24 HR) 80 MG CAP.SA.24H PO SCH (09:06)
[2016-12-29] MEDS: Cholecalciferol (D-3) 1,000 UNIT TABLET PO SCH (09:06)
[2016-12-29] MEDS: Nicotine 21 MG PATCH.TD24 TD SCH (09:07)
[2016-12-29] MEDS: Insulin LISPRO 300 UNITS/3 ML VIAL SQ SCH ×3 (09:22→15:34)
[2016-12-29] MEDS: Insulin DETEMIR 100 UNIT/ML X5UNITS SQ SCH (09:37)
[2016-12-29 14:48] VITALS: BP 177/90
[2016-12-29] MEDS: *HR* Morphine 2 MG/ML SYRINGE IVP PRN (15:21)
--- NOTE | 2016-12-29 16:19 | Discharge Summary ---
Date of Encounter: 12/29/16 Time of Encounter: 16:17 - Discharge Diagnosis (1) Hypertension Priority: Primary Status: Acute Qualifiers: Hypertension type: essential hypertension Qualified Code(s): I10 - Essential (primary) hypertension (2) DVT prophylaxis Priority: Secondary Status: Acute (3) COPD exacerbation Priority: Primary Status: Acute (4) Smoker Priority: Secondary Status: Acute (5) New onset type 2 diabetes mellitus Priority: Primary Status: Acute (6) Fracture of rib of left side Priority: Primary Status: Acute Qualifiers: Encounter type: initial encounter Rib fracture type: single rib Fracture type: closed Qualified Code(s): S22.32XA - Fracture of one rib, left side, initial encounter for closed fracture - Discharge Medications Prescriptions: Ipratropium/Albuterol Neb [Duoneb] 3 ml IH Q6HR #120 inhsol Azithromycin [Zithromax] 500 mg PO Q24H #3 tablet Calcium Carbonate [Tums] 500 mg PO BID #60 tab.chew Cholecalciferol (D-3) [Vitamin D] 1,000 unit PO DAILY #30 tablet HYDROcodone/Acet 5/325 mg [[place] 5-325 mg] 1 tab PO Q6H PRN #15 tab PRN Reason: Pain Insulin Degludec [Tresiba Flextouch U-100] 15 unit SQ DAILY #10 insuln.pen Lisinopril [Zestril] 10 mg PO DAILY #30 tablet metFORMIN [Glucophage] 1,000 mg PO BIDWM #60 tablet Nicotine Patch [Nicoderm] 21 mg TD DAILY #20 patch.td24 predniSONE [PredniSONE] See Taper PO DAILY #120 tablet Home Medications: Atorvastatin [Lipitor] 40 mg PO HS 07/15/15 [History] Citalopram [CeleXA] 20 mg PO DAILY 07/15/15 [History] Omeprazole [PriLOSEC] 20 mg PO DAILY 07/15/15 [History] Albuterol Sulfate [Ventolin Hfa] 2 puff IH Q6H PRN 09/08/16 [History] Propranolol HCl [Innopran Xl] 80 mg PO DAILY 09/08/16 [History] Tramadol HCl [Ultram] 50 mg PO BID PRN 09/08/16 [History] Fluticasone/Vilanterol [Breo Ellipta 200-25 Mcg INH] 1 each IH DAILY 12/26/16 [ History] Azithromycin [Zithromax] 500 mg PO Q24H #3 tablet 12/29/16 [Rx] Calcium Carbonate [Tums] 500 mg PO BID #60 tab.chew 12/29/16 [Rx] Cholecalciferol (D-3) [Vitamin D] 1,000 unit PO DAILY #30 tablet 12/29/16 [Rx] HYDROcodone/Acet 5/325 mg [[place] 5-325 mg] 1 tab PO Q6H PRN #15 tab 12/29/16 [Rx ] Insulin Degludec [Tresiba Flextouch U-100] 15 unit SQ DAILY #10 insuln.pen 12/29 [Rx] Ipratropium/Albuterol Neb [Duoneb] 3 ml IH Q6HR #120 inhsol 12/29/16 [Rx] Lisinopril [Zestril] 10 mg PO DAILY #30 tablet 12/29/16 [Rx] Nicotine Patch [Nicoderm] 21 mg TD DAILY #20 patch.td24 12/29/16 [Rx] metFORMIN [Glucophage] 1,000 mg PO BIDWM #60 tablet 12/29/16 [Rx] predniSONE [PredniSONE] See Taper PO DAILY #120 tablet 12/29/16 [Rx] Allergies/Adverse Reactions: Allergies No Known Allergies Allergy (Verified 09/08/16 15:12) Date of admission: 12/26/16 22:40 Primary care physician: Basil Moreno, Consults: 12/27/16 11:02 Consult to Office Executive [CONS] Routine Comment: Reason for Consult: NEW ONSET DIABETES Discharging clinician: Meenu Villagran Anticipated date of discharge: 12/29/16 - Patient Status Disposition: Home, Self-Care Condition: Fair Functional capacity at discharge: independent ambulation Overall status at discharge: patient is back to baseline - Discharge Instructions Follow Up With: Basil Moreno DO [Primary Care Provider] - 01/05/17 9:30 am - Diet and Activity Activity: increase activity as tolerated, resume usual activities as tolerated Diet: diabetic diet, low fat, low cholesterol (Patient is advised to return to yearly symptoms develop or worsen. He will check his blood sugar before each meal and at night and reported to his family doctor if there are more than 300 AND 80. Patient will see his family doctor in next 1 or 2 days. Patient has new onset diabetes which needs extra care and if he has any confusion he should call his family doctor to come to ER right away.), low salt diet Interval History: Patient was admitted with pneumonia and COPD exacerbation. He was noted to have new-onset diabetes for which he was provided diabetic education and tried to be treated with metformin however his blood sugar were too high therefore he was started on insulin. He is advised to see his family doctor tomorrow so that continued use of care can be achieved. Necessary instructions given for hypoglycemia and hyperglycemia. We will continue antibiotic steroid med nebs at home. He also has oxygen at home which she can use. His hemoglobin A1c was October 22.2. He is very strongly recommended to quit his smoking. Counseling provided. Patient also have a left nondisplaced ninth rib fracture which happened due to intense coughing. He has been placed on vitamin D and calcium. The codeine patch as recommended. Patient has been noted to have leg swelling though his lung examination is quite clear. I suspect this could be secondary to long-standing COPD. I offered him to do an echocardiogram in hospital however he declined and would rather do it patient for which I ask him to check with his family doctor. His blood pressure was also noted high and therefore lisinopril was added. Considering his age low-dose aspirin with current diagnosis is appropriate. Hospital course: Mr. Matos is a 51 year old male - Time Spent with Patient Total time spent providing and/or coordinating discharge services: Greater than 30 minutes - Constitutional Vitals: Temp Pulse Resp BP Pulse Ox 98.2 F 76 18 177/90 92 12/29/16 14:46 12/29/16 14:46 12/29/16 14:46 12/29/16 14:46 12/29/16 14:46 General appearance: Present: A&O X 3, pleasant, obese, answers questions appropriately - Head Head exam: Present: atraumatic, normocephalic - Eye Eye exam: Present: PERRL, conjuntiva pink, sclera anicteric Pupils: Present: PERRL - Neck Neck exam general surgery: Present: supple, trachea midline. Absent: lymphadenopathy - Respiratory Respiratory exam: Present: CTAB. Absent: accessory muscle use, rales, rhonchi, wheezes - Cardiovascular Cardiovascular exam: Present: RRR, +S1, +S2. Absent: diastolic murmur, gallop, rubs, systolic murmur - GI/Abdominal GI/Abdominal exam: Present: normal bowel sounds, soft, no peritoneal signs. Absent: distended, tenderness - Extremities Exam Extremities exam: Present: warm, radial pulses palpable and symetrical. Absent : calf tenderness, cyanotic, pedal edema - Neurological Exam Neurological exam: Present: CN II-XII intact, oriented X3, no focal deficits. Absent: pronater drift, facial droop, speech deficit - Skin Skin exam: Present: dry, intact
--- NOTE | 2016-12-29 16:53 | Internal Med Progress Note ---
Date of Encounter: 12/28/16 Time of Encounter: 16:51 - Assessment and plan (1) Hypertension Current Visit: Yes Status: Acute Assessment and plan: The patient has been noted to be elevated. Considering history of diabetes want to try lisinopril however his potassium is slightly elevated which could be just due to IV Solu-Medrol and heavier dose. While we are reducing IV Solu- Medrol I will introduce lisinopril 5 mg daily to see if blood pressure improves and also if his potassium remained stable. Qualifiers: Hypertension type: essential hypertension Qualified Code(s): I10 - Essential (primary) hypertension (2) DVT prophylaxis Current Visit: Yes Status: Acute Assessment and plan: Patient is on Lovenox and has been advised to ambulate (3) COPD exacerbation Current Visit: Yes Status: Acute Assessment and plan: Patient presented with the bilateral diffuse wheezing shallow breath sounds and COPD exacerbation. He is a smoker. Counseling provided. IV steroids will be reduced from IV Solu-Medrol 125 mg 3 times a day to 60 mg every 8 as well as nebulizers will be reduced to dual nebs every 6+ albuterol nebs every 2 hours. He is on oxygen. He might have to stay for more than 2 days. Home is steroids and inhaler will be on hold for now. (4) Smoker Current Visit: Yes Status: Acute Assessment and plan: Counseling voided and nicotine patch recommended (5) New onset type 2 diabetes mellitus Current Visit: Yes Status: Acute Assessment and plan: Patient hemoglobin A1c is 8.2. Diabetic education arranged and caution provided. After discussion with patient we have decided to give a trial to oral hypoglycemics though he is currently using almost 27 units of insulin. However the caveat is that he is on heavy dose IV steroids. He most probably will need insulin. He will continue to have Accu-Chek 4 times a day with sliding scale coverage. And to be provided counseling regarding possible risk complication associated with diabetes and advised to follow-up with family doctor in this regard. (6) Fracture of rib of left side Current Visit: Yes Status: Acute Assessment and plan: Patient have spontaneous left ninth rib fracture. He seems quite comfortable. I have added calcium and vitamin D and will give him cough syrup with codeine for further comfort. Qualifiers: Encounter type: initial encounter Rib fracture type: single rib Fracture type: closed Qualified Code(s): S22.32XA - Fracture of one rib, left side, initial encounter for closed fracture - Subjective Interval history: Mr. Eugene Matos is a 51-year-old male admitted as a vision and left-sided ninth rib fracture intense coughing. He has been diagnosed with new-onset hypertension and new onset diabetes during this admission. he is a smoker and has been advised to quit his smoking. For DVT prophylaxis he is on Lovenox. - Constitutional Vitals: Temp Pulse Resp BP Pulse Ox 98.2 F 76 18 177/90 92 12/29/16 14:46 12/29/16 14:46 12/29/16 14:46 12/29/16 14:46 12/29/16 14:46 General appearance: Present: A&O X 3, pleasant, obese, answers questions appropriately - Head Head exam: Present: atraumatic, normocephalic - Eye Eye exam: Present: PERRL, conjuntiva pink, sclera anicteric Pupils: Present: PERRL - Neck Neck exam general surgery: Present: supple, trachea midline. Absent: lymphadenopathy - Respiratory Respiratory exam: Present: CTAB. Absent: accessory muscle use, rales, rhonchi, wheezes Additional comments: Breath sounds Shallow No Wheezing Now overall air movement has improved no rhonchi no rales - Cardiovascular Cardiovascular exam: Present: RRR, +S1, +S2. Absent: diastolic murmur, gallop, rubs, systolic murmur - GI/Abdominal GI/Abdominal exam: Present: normal bowel sounds, soft, no peritoneal signs. Absent: distended, tenderness - Extremities Exam Extremities exam: Present: warm, radial pulses palpable and symetrical. Absent : calf tenderness, cyanotic, pedal edema - Neurological Exam Neurological exam: Present: CN II-XII intact, oriented X3, no focal deficits. Absent: pronater drift, facial droop, speech deficit - Skin Skin exam: Present: dry, intact Internal Medicine: Result - Labs CBC & Chem 7: 12/27/16 04:10 12/27/16 04:10 - ABG Interpretation ABG results: PT/INR, D-dimer PT 12.2 Seconds (9.4-12.1) H 12/27/16 04:10 Consult Discharge Plan - Plan Referrals: Basil Moreno DO [Primary Care Provider] - 01/05/17 9:30 am Prescriptions: Ipratropium/Albuterol Neb [Duoneb] 3 ml IH Q6HR #120 inhsol Azithromycin [Zithromax] 500 mg PO Q24H #3 tablet Calcium Carbonate [Tums] 500 mg PO BID #60 tab.chew Cholecalciferol (D-3) [Vitamin D] 1,000 unit PO DAILY #30 tablet HYDROcodone/Acet 5/325 mg [[place] 5-325 mg] 1 tab PO Q6H PRN #15 tab PRN Reason: Pain Insulin Degludec [Tresiba Flextouch U-100] 15 unit SQ DAILY #10 insuln.pen Lisinopril [Zestril] 10 mg PO DAILY #30 tablet metFORMIN [Glucophage] 1,000 mg PO BIDWM #60 tablet Nicotine Patch [Nicoderm] 21 mg TD DAILY #20 patch.td24 predniSONE [PredniSONE] See Taper PO DAILY #120 tablet
[2016-12-29] MEDS ORDERED: Azithromycin 250 MG TABLET PO SCH (21:00)
== END 2016-12-29 18:02 | disposition home or self-care (01) | DRG 140 ==
LOC: 3ANU 15:34 → EMEROO 15:34 → 3ANU 19:48
PROVIDERS: ADMIT Family Medicine; ATTEND Internal Medicine Endocrinology, Diabetes & Metabolism